=== PATIENT | male | born 1980 | race Caucasian/White ===

== ENCOUNTER 2017-11-01 18:11 | Emergency (ER) | payer OTHER | END 2017-11-01 22:51 | disposition home or self-care (01) | LOC: M ED 18:11 | DX: R45.4 Irritability and anger (principal); E11.9 Type 2 diabetes mellitus without complications; I10 Essential (primary) hypertension; F33.9 Major depressive disorder, recurrent, unspecified; K21.9 Gastro-esophageal reflux disease without esophagitis; F41.9 Anxiety disorder, unspecified; Z98.890 Other specified postprocedural states; Z88.8 Allergy status to other drugs, medicaments and biological substances; Z88.2 Allergy status to sulfonamides | CPT/HCPCS: 99284 ==

== ENCOUNTER 2023-12-25 14:54 | Emergency (ER) | payer OTHER ==
[~2023-12-25 14:54] MED LIST: CYMB60CA4 PO; DEPA1TAB3 PO; DEPA500T2 PO; METF10004 PO; METF500T13 PO; METO50TA7 PO; NEXI20GR PO; PRAV1TAB39 PO; PRAV80TA2 PO; TOPR100T PO; TRIC145T22 PO
[2023-12-25] MEDS ORDERED: ESOM40CA35 (15:08)
[2023-12-25] MEDS ORDERED: IBUP-1022 PO (15:08)
[2023-12-25] MEDS ORDERED: LISI20TA33 (15:08)
[2023-12-25] MEDS ORDERED: ISOVUE-370 76% 100ML VIAL As Ordered ONE (15:26)
[2023-12-25] MEDS: PERCOCET 5MG/325MG TAB PO ONE (15:30)
[2023-12-25 16:45] VITALS: BP 171/97
[2023-12-25 16:46] VITALS: TEMP 98.1; O2SAT 98
== END 2023-12-25 17:30 | disposition home or self-care (01) ==
LOC: EDBD 14:54 → M ED 14:54
DX: S50.12XA Contusion of left forearm, initial encounter (principal); S30.1XXA Contusion of abdominal wall, initial encounter; W28.XXXA Contact with powered lawn mower, initial encounter; R16.1 Splenomegaly, not elsewhere classified; E11.9 Type 2 diabetes mellitus without complications; I10 Essential (primary) hypertension; E78.5 Hyperlipidemia, unspecified; Y92.009 Unspecified place in unspecified non-institutional (private) residence as the place of occurrence of the external cause; Y93.H2 Activity, gardening and landscaping; Y99.9 Unspecified external cause status
CPT/HCPCS: 36415; 73080; 73090; 74177; 80047; 99284; Q9967